=== PATIENT | male | born 1975 | race Caucasian/White ===

== ENCOUNTER → 2018-01-12 11:30 | Outpatient (CLI) | payer OTHER, MEDICAID, SELFPAY ==
[2018-01-12 12:52] LABS: Alanine Aminotransferase 47 IU/L (21-72); Albumin 4.5 g/dL (3.5-5.0); Albumin Globulin Ratio 1.7 (1.0-2.8); Alkaline Phosphatase 56 U/L (38-126); Aspartate Aminotransferase 24 IU/L (17-59); Bilirubin Total 0.8 mg/dL (0.2-1.3); Blood Urea Nitrogen 14 mg/dL (9-20); Calcium 9.3 mg/dL (8.4-10.2); Carbon Dioxide 27 mmol/L (22-32); Chloride 104 mmol/L (98-107); Cholesterol 173 mg/dL (140-199); Estimated Glomerular Filt Rate > 60.0 mL/min (>60); Globulin 2.6 g/dL (1.7-4.1); Glucose 102 mg/dL (70-100); HDL Cholesterol 40 mg/dL (40-60); HEMOLYSIS < 15 (0-50); LDL Cholesterol Calculated 110 mg/dL (<100); Potassium 4.5 mmol/L (3.4-5.1); Sodium 145 mmol/L (137-145); Total Protein 7.1 g/dL (6.3-8.2); Triglycerides 116 mg/dL (35-150); Uric Acid 6.8 mg/dL (3.5-8.5)
== END ==
PROVIDERS: PCP Physician Assistant; Visit Provider Physician Assistant
DX: E66.9 Obesity, unspecified (principal); M25.40 Effusion, unspecified joint; Z82.49 Family history of ischemic heart disease and other diseases of the circulatory system
CPT/HCPCS: 36415; 80053; 80061; 84550

== ENCOUNTER → 2019-04-22 13:29 | Outpatient (CLI) | payer OTHER, MEDICAID, SELFPAY | PROVIDERS: PCP Physician Assistant; Visit Provider Physician Assistant | DX: K14.6 Glossodynia (principal) | CPT/HCPCS: 87070; 87205 ==

== ENCOUNTER → 2020-02-20 15:57 | Outpatient (CLI) | payer OTHER, MEDICAID, SELFPAY ==
[2020-02-20 17:07] LABS: Add Manual Diff / Slide Review NO; Basophils Absolute Auto 100 /uL (0-100); Basophils Percent Auto 0.5 % (0-2); Eosinophils Absolute Auto 200 /uL (0-450); Eosinophils Percent Auto 2.3 % (2-4); Hematocrit 45.8 % (41-53); Hemoglobin 15.6 g/dL (13.5-17.5); Lymphocytes Absolute Auto 2100 /uL (1100-4500); Lymphocytes Percent Auto 22.7 % (25-40); Mean Corpuscular Hemoglobin 31.1 PG (26-34); Mean Corpuscular Volume 91.4 fL (80-100); Monocytes Absolute Auto 600 /uL (0-900); Monocytes Percent Auto 6.4 % (3-14); Neutrophils Absolute Auto 6400 /uL (1500-7000); Neutrophils Percent Auto 68.1 % (50-75); Platelet Count 259 X10^3/uL (150-400); Red Blood Cell Count 5.01 X10^6/uL (4.5-5.9); White Blood Cell Count 9.4 X10^3/uL (4.5-11.0)
[2020-02-20 17:19] LABS: Cholesterol 204 mg/dL (140-199); HDL Cholesterol 43 mg/dL (40-60); LDL Cholesterol Calculated 132 mg/dL (<100); Triglycerides 146 mg/dL (35-150)
[2020-02-20 17:21] LABS: Alanine Aminotransferase 28 IU/L (<50); Albumin 4.5 g/dL (3.5-5.0); Albumin Globulin Ratio 1.3 (1.0-2.8); Alkaline Phosphatase 71 U/L (38-126); Aspartate Aminotransferase 23 IU/L (17-59); BUN Creatinine Ratio 11.1 (6-22); Bilirubin Total 0.8 mg/dL (0.2-1.3); Blood Urea Nitrogen 12 mg/dL (9-20); Calcium 9.2 mg/dL (8.4-10.2); Carbon Dioxide 26 mmol/L (22-32); Chloride 106 mmol/L (98-107); Estimated Glomerular Filt Rate > 60.0 mL/min (>60); Globulin 3.6 g/dL (1.7-4.1); Glucose 95 mg/dL (70-100); HEMOLYSIS < 15 (0-50); Lipase 68 U/L (23-300); Potassium 3.9 mmol/L (3.4-5.1); Sodium 141 mmol/L (137-145); Total Protein 8.1 g/dL (6.3-8.2)
== END ==
PROVIDERS: PCP Family Medicine; Referring Provider Registered Nurse; Visit Provider Registered Nurse
DX: R10.9 Unspecified abdominal pain (principal); Z68.35 Body mass index [BMI] 35.0-35.9, adult
CPT/HCPCS: 36415; 80053; 80061; 83690; 85025

== ENCOUNTER → 2020-02-22 07:45 | Outpatient (CLI) | payer OTHER, MEDICAID, SELFPAY ==
--- NOTE | 2020-02-22 07:46 | DI.US.S_ITS ---
PROCEDURE: US ABDOMEN COMPLETE INDICATIONS: abdominal pain TECHNIQUE: Real-time scanning was performed of the abdominal and retroperitoneal organs, with image documentation. COMPARISON: [facility], US, ABDOMEN COMPLETE, 06/01/2010, 14:24. [facility], [place], ABDOMEN COMPLETE, 11/04/2013, 9:34. FINDINGS: Liver: The liver demonstrates normal size. The liver demonstrates generalized moderately increased echogenicity. This decreases ultrasound sensitivity for detection of hepatic masses. Apparent fatty sparing can be seen adjacent to, 16 x 6 x 5 mm Gallbladder: A nonmobile stones with mild shadowing can be seen near the gallbladder neck, that measures up to 14. The gallbladder wall is not thickened, measuring 3 mm or less. No specific pericholecystic fluid is seen. The sonographic Armas sign is negative. Biliary ducts: Intrahepatic bile ducts are non-dilated. Extrahepatic bile duct caliber measures 5 mm. Normal is 6-7 mm or less in diameter, or 10 mm or less post-cholecystectomy. Pancreas: Not well seen. Spleen: The spleen demonstrates normal size. The spleen is mildly heterogeneous, with a 1.1 cm vascular nodule within it. Kidneys: Kidneys are normal in size and echotexture. Right kidney measures 11.4 cm long; left kidney measures 12.1 cm long. No hydronephrosis. No solid masses. Apparent kidney stones are seen, with the largest within the left mid kidney measuring up to 1.3 cm. Aorta: Visualized aorta is normal in caliber at less than 3 cm. Iliacs: Proximal common iliac arteries are normal in caliber at less than 2.5 cm. IVC: Intrahepatic inferior vena cava is patent. Miscellaneous: No free abdominal fluid. IMPRESSION: Within the spleen, there is a vascular nodule that measures up to 1.1 cm. This is regarded to be unlikely to be related to the patient's presenting history of left upper quadrant pain. If clinically appropriate, please consider a follow-up abdomen and pelvis CT with at least IV contrast for further evaluation. An apparent group of nonmobile gallstones can be seen, yet without additional sonographic signs of cholecystitis. Negative for biliary dilatation. Please correlate with physical examination findings, patient presentation, and laboratory values. Fatty liver infiltration. Pancreas not well seen. Dictated by: Aubrey Baca M.D. on 02/22/2020 at 8:18 Approved by: Indio LopezD. on 02/22/2020 at 8:23
== END ==
PROVIDERS: PCP Family Medicine; Referring Provider Family Medicine; Visit Provider Registered Nurse
DX: R10.12 Left upper quadrant pain (principal); K76.0 Fatty (change of) liver, not elsewhere classified; K80.20 Calculus of gallbladder without cholecystitis without obstruction; D73.9 Disease of spleen, unspecified
CPT/HCPCS: 76700

== ENCOUNTER → 2020-03-06 10:38 | Outpatient (CLI) | payer OTHER, MEDICAID, SELFPAY ==
--- NOTE | 2020-03-06 10:45 | DI.CT.S_ITS ---
PROCEDURE: CT ABDOMEN PELVIS WO/W CON INDICATIONS: Spleen nodule TECHNIQUE: After the administration of oral contrast, 5 mm thick sections acquired from the diaphragms to the iliac crests. After the administration of intravenous contrast, 5 mm thick sections acquired from the diaphragms to the symphysis. 5 mm thick coronal and sagittal reformats were acquired. For radiation dose reduction, the following was used: automated exposure control, adjustment of mA and/or kV according to patient size. COMPARISON: [facility], [place], ABDOMEN COMPLETE, 11/04/2013, 9:34. [facility], [place], US ABDOMEN COMPLETE, 02/22/2020, 8:06. FINDINGS: Image quality: Excellent. ABDOMEN: Lung bases: There is a nonenhancing, low-density, subpleural ovoid mass in the left paravertebral soft tissues just behind the aorta. It measures 2.5 x 4.8 cm. Lung bases are clear. Heart size is normal. Solid organs: Liver is normal in size and enhancement. Mild steatosis. Gallbladder contains a small peripherally calcified stone near the neck measuring about 8 mm. No suspicious wall thickening or pericholecystic inflammation. Biliary system is non-dilated. Pancreas enhances normally. Spleen is normal in size. A 1.1 cm minimally vascular nodule is present centrally in the spleen. Additionally, a 1.2 cm vascular nodule is present along the anterior margin. No adrenal nodules. Both kidneys are normal in size. No hydronephrosis or radiodense nephrolithiasis. Bowel and peritoneum: Stomach, small and large bowel loops are normal in caliber and wall thickness. Normal appendix. No free fluid or air. Nodes and vessels: No retroperitoneal or mesenteric adenopathy by size criteria. Aorta and inferior vena are normal in caliber. Miscellaneous: No ventral hernias. PELVIS: Genitourinary: Bladder wall thickness is normal. Miscellaneous: No inguinal hernias or adenopathy. Bones: No suspicious bony lesions. No vertebral body compression fractures. IMPRESSION: 1. There are two mildly vascular nodules within the splenic parenchyma. These are nonspecific but statistically most likely hemangiomas or lymphangioma is. Less typical for vascular shunts or AVM. 2. Cholelithiasis. 3. 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 4. No evidence of renal calculi. 5. Mild hepatic steatosis. Dictated by: Mackenzie Jacobs M.D. on 03/06/2020 at 14:41 Approved by: Mackenzie Jacobs M.D. on 03/06/2020 at 14:56
== END ==
PROVIDERS: PCP Family Medicine; Referring Provider Registered Nurse; Visit Provider Registered Nurse
DX: D73.89 Other diseases of spleen (principal); K80.20 Calculus of gallbladder without cholecystitis without obstruction; N28.89 Other specified disorders of kidney and ureter; M48.9 Spondylopathy, unspecified
CPT/HCPCS: 74178; Q9967

== ENCOUNTER → 2020-06-01 11:03 | Outpatient (CLI) | payer OTHER, MEDICAID, SELFPAY ==
[2020-06-01 11:42] LABS: COVID19 -Nasal RAPID Negative (Negative)
== END ==
PROVIDERS: PCP Family Medicine; Visit Provider Surgery
DX: Z20.822 Contact with and (suspected) exposure to COVID-19 (principal)
CPT/HCPCS: 87635; C9803

== ENCOUNTER 2020-06-04 13:18 | Day surgery (SDC) | payer OTHER, MEDICAID, SELFPAY ==
[2020-06-04] VITALS (16 sets, daily range): BP systolic 119–151; BP diastolic 72–93; PULSE 72–110; RESP 10–20; TEMP 36.3–37.9; O2SAT 90–98; BMI 32.8
--- NOTE | 2020-06-04 | PATH_ITS ---
[facility] Accession Number: [id number] . 01 Material submitted: . PART A: gallbladder - GALLBLADDER AND CONTENTS PART B: duodenum - DUODENUM PART C: stomach - STOMACH BIOPSY PART D: esophagus - ESOPHAGEAL BIOPSY . 02 Diagnosis: A. Gallbladder and Contents, Cholecystectomy: Chronic cholecystitis, cholesterolosis, and cholelithiasis. . B. Duodenum, Biopsy: Duodenal mucosa with no diagnostic abnormality. Negative for active inflammation, features of sprue, dysplasia, or malignancy. . C. Stomach Biopsy: Portions of gastric antral and body-type mucosa with mild chronic inflammation. Negative for Helicobacter organisms by immunohistochemistry studies. Negative for intestinal metaplasia. Negative for dysplasia and malignancy. . D. Esophageal Biopsy: Squamocolumnar junctional mucosa with no diagnostic abnormality. Negative for intestinal metaplasia by alcian blue stain. Negative for dysplasia and malignancy. . [facility] 06/08/2020 1249 Local . 02 Electronically signed: . Jackie Degroot MD, Pathologist NPI- [id number] . 01 Gross description: . A. The specimen is received in formalin, labeled gallbladder and consists an 8.5 x 3.0 x 3.0 cm gallbladder with a 0.2 cm in diameter cystic duct. The serosa is landeros-green and smooth. Opening reveal green viscous bile with 1.8 x 1.5 x 1.0 cm green cholelith. The mucosa is lake-green and velvety, and the wall thickness measures 0.1 cm. Job Honer sections are submitted to include the en face cystic duct margin (blue) in cassette A1. B. The specimen is received in formalin, labeled duodenum and consists of a 0.3 x 0.2 x 0.2 cm lake-pink fragment of soft tissue which is entirely submitted in cassette B1. C. The specimen is received in formalin, labeled stomach and consists of three lake-pink fragments of soft tissue measuring 0.6 x 0.4 x 0.2 cm in aggregate. The specimen is entirely submitted in cassette C1. D. The specimen is received in formalin, labeled esophageal and consists of three lake fragments of soft tissue measuring 0.5 x 0.4 x 0.2 cm in aggregate. The specimen is entirely submitted in cassette D1. (EA:[id number]) /MRV 06/06/2020 1130 Local . 02 Microscopic: . C. An immunohistochemical stain was performed to evaluate for Helicobacter organisms and is negative. The control stain showed appropriate reactivity. . * This test was developed and its performance characteristics determined by [employer]. It has not been cleared or approved by the U.S. Food and Drug Administration. The FDA has determined that such clearance or approval is not necessary. This test is used for clinical purposes. It should not be regarded as investigational or for research. . 02 Pathologist provided ICD-10: K20.90, K80.20 . 02 CPT . 989928, 138055, 909341, 627978, S80436, 661984 Performed at: 01 [facility] [address] [place] [address], [place], [place] [id number] MD Tylor Bobby MD Phone: [phone] Performed at: 02 [facility] [place] [address] [address] [place], [place] [id number] MD Devika Bill MD Phone: [phone]
[2020-06-04] MEDS: LACTATED RINGERS 1,000 ML 100 ML IV ×2 (13:50→16:18)
[2020-06-04] MEDS: [UNRECOGNIZED DRUG - OTHER] 5 EACH IV (13:50)
[2020-06-04] MEDS: PIPERACILLIN-TAZO 3.375 GM/50 ML FROZ.PIGGY IV (14:22)
--- NOTE | 2020-06-04 14:27 | PM.PREOP ---
Pre-operative Note COVID-19 COVID-19 status: Negative Result date/Date tested (Pos, Neg/Pending): 06/01/20 Interval Note History & Physical reviewed/Exam performed by Physician: Yes Changes to H&P: No
[2020-06-04] MEDS: BUPIVACAINE 0.25% W/ EPI (PF) 10 ML VIAL 30 ML INJ (14:57)
--- NOTE | 2020-06-04 16:28 | PM.OP.1 ---
Operative Date/Time/Diagnoses Date of procedure: 06/04/20 Time of procedure: 16:28 Pre-op diagnosis: Symptomatic cholelithiasis Post-op diagnosis: other (Acute on chronic cholecystitis, symptomatic cholelithiasis, deeply intrahepatic gallbladder) Procedure & Clinicians Procedure: Laparoscopic cholecystectomy Indocyanine green cholangiography Modified 22 for deeply intrahepatic gallbladder, resulting in increased operative time and complexity Same procedure as scheduled: Yes Indications: Symptomatic cholithiasis Surgeon: Paty Olsen Click Yes if Unassisted: Yes Anesthesia Type: General Operative Notes Findings: Thickened gall bladder, deeply intrahepatic gall bladder Specimen(s): other (gall bladder and contents) Applied: drain(s) Estimated Blood Loss (mL): 100 Blood products transfused: none Procedure in detail: The patient was brought into the operating room and placed supine on the OR table. Sequential compression devices were placed on both legs and turned on. Appropriate perioperative antibiotics were given prior to the start of surgery. General anesthesia was induced the patient was intubated. The abdomen was prepped and draped in sterile fashion. Surgical time-out was conducted. Local anesthetic was injected under the skin just superior to the umbilicus and a 5 mm vertical incision was made at this site. The umbilical stalk was grasped with a Anusha and elevated. A Veress needle was passed through the fascia into proper position. The position was tested with a saline drop test which was appropriate for intra-abdominal Veress needle placement. The abdomen was then insufflated in the usual fashion. Once insufflated to 15 mm Hg the Veress needle was removed and a 5 mm optical trocar was placed under direct vision using a 5 mm 30 degree scope. Once the camera was inside the abdomen I took a look around. There was no injury from port placement. Two additional ports were placed in a similar fashion in the right upper quadrant and a 10 mm port was placed in the epigastrium. Through the 2 lateral ports the gallbladder was grasped and elevated and the infundibulum was retracted laterally to the patient's right. The gall bladder was deeply intra-hepatic. Through positioning, access to the gall bladder hilum was not achievable due to the deeply intrahepatic position of the gall bladder. The hilum could not be safely approached at this point. The decision was made to begin taking the gall bladder from the top down. A Raytec was placed into the abdomen and it was used to protect the liver while retracting upwards on the liver. L-hook cautery was used to open the serosa of the gall bladder and to begin dividing the gall bladder fundus from the liver beginning at its most superior extent, and carefully dissecting down along the posterior surface of the gall bladder in the plane between the gall bladder and the liver. Several penetrating vessels were encountered and were controlled with clips and cautery. This part of the procedure added over one hour to the operation, due to patient anatomy. Modifier 22 should be included in the coding for this case due to increased operative time, and increased level of skill and difficulty required to complete this part of the operation safely. Once the gall bladder was freed from the liver surface, I again lifted the gall bladder and attempted to retract the infundibulum laterally again and to see the hilum. At this point, I was able to get the gall bladder away from the liver enough to address the cystic duct and artery. There was thick inflammatory tissue on the surface of the infundibulum and cystic structures. This was carefully taken down with hook cautery. Indocyanine green cholangiography was used to identify the cystic duct and common bile duct. The cystic duct was obstructed at its junction with the gall bladder with a gall stone lodged in the neck. The cystic duct and CBD were both seen with ICG, and the common bile duct was seen well away from the area of dissection. [place] dissector and right angle were used to dissect out the cystic duct and artery. Once the cystic duct and artery were completely dissected out I was able to see liver behind and between both structures without any other structures in the way, giving us the critical view of safety. I again checked the view using ICG and was able to identify the anterior structure as the cytic duct. I milked the obstructing stone up as high as I could to give more length on the cystic duct. At this point I triply clipped both structures on the patient's side and put a single clip on the gallbladder side of both the cystic duct and artery. Both structures were then divided with laparoscopic Betito. The few remaining adhesions were taken down with hook cautery. Following this the gallbladder was free from the liver. It was placed inside an Endo-Catch bag and removed through the epigastric port site. I did not have to enlarge the epigastric port site to remove the gall bladder. I irrigated and inspected the gall bladder hilum for hemostasis. An additional clip was applied to an oozing vessel in the gall bladder hilum, and surgicel was used to achieve good hemostasis I suctioned clean any remaining blood or fluid on the lateral side of the liver and in the subhepatic space. The Raytec was removed. There was no active bleeding or leaking of bile from the gallbladder fossa or from the clipped stumps of the cystic duct and artery. A 19 round staci drain was placed through the lateral port site and positioned in an infrahepatic position. At this point an O vicryl on a [email or web address] suture passer was used to close the epigastric port site in the fascia with multiple sutures. Insufflation was then removed from the abdomen. Additional local anesthetic was given at the epigastric site. A 3-0 Vicryl was used to close the subcutaneous layers, and 4-0 Monocryl was used to close the skin. Additional local anesthetic was infiltrated into each port site. Each port site was closed with 4-0 Monocryl, and sealed with Dermabond. This concluded the procedure. At this point the needle, sponge, and instrument counts were correct. The gallbladder was passed off the table for pathology. Patient was awakened from anesthesia and extubated. He was transferred to the postanesthesia care unit in stable condition. Complications: none Post-operative Condition: stable Disposition: PACU
--- NOTE | 2020-06-04 16:28 | PM.OP.ENDO ---
Operative Date/Time/Diagnoses Date of procedure: 06/04/20 Time of procedure: 16:28 Pre-op diagnosis: Heartburn uncontrolled with omeprazole Procedure & Clinicians Study performed: Esophagus gastroduodenoscopy Biopsies of duodenum, stomach, distal soft Same procedure as scheduled: Yes Indications: Heartburn controlled with omeprazole Surgeon: Paty Olsen Procedure Notes SCOAP/Timeout: Performed Procedure in detail: This procedure was done after the patient's cholecystectomy, and he was still under anesthesia with an ET tube in place. A bite block was positioned in the patient's mouth to protect the lips, teeth, and tongue for the procedure. The time-out was already completed at the beginning of the cholecystectomy procedure which preceded this EGD. The lubricated gastroscope was passed through the bite block and across the tongue and into the esophagus without incident. A tubular view of the esophagus was maintained as the scope was advanced through the esophagus and into the stomach. The scope was advanced through the stomach and to the pylorus. The scope was gently popped through the pylorus and into the duodenal bulb. The scope was flexed and advanced into the second and third portions of the duodenum. The duodenum and duodenal bulb [appeared otherwise normal, with significant bile staining]. Biopsies were taken. The scope was withdrawn into the stomach. Moderate endoscopic gastritis was seen in the stomach, with no significant ulcers, exposed vessels, or active bleeding. The scope was retroflexed and the gastric cardia was examined. There was no significant evidence of a hiatal hernia. The scope was then straightened, and withdrawn into the esophagus. There was a broken Z-line, with several 1-2 cm tongues of salmon-colored mucosa coming up into the esophagus. Biopsies were taken. The distal esophagus [appeared otherwise normal]. The scope was then withdrawn through the esophagus with a tubular view. The scope was then withdrawn from the patient the procedure was concluded. The patient tolerated the procedure well. He was awakened from anesthesia, extubated, and was transferred to the PACU in stable condition. Findings: gastritis and other findings (Reflux esophagitis) Specimen(s): other (Biopsies of duodenum, stomach, distal esophagus) Complications: none Impression: Reflux esophagitis, gastritis Post-procedure Recommendations: Continue medication(s) (Continue omeprazole) and Other recommendation (Will discuss biopsy results the patient comes for postop visit) Follow up: as needed Disposition: PACU
[2020-06-04 17:34] LABS: Add Manual Diff / Slide Review NO; Basophils Absolute Auto 0 /uL (0-100); Basophils Percent Auto 0.2 % (0-2); Eosinophils Absolute Auto 0 /uL (0-450); Eosinophils Percent Auto 0.3 % (2-4); Hemoglobin 14.6 g/dL (13.5-17.5); Lymphocytes Absolute Auto 700 /uL (1100-4500); Mean Corpuscular Hemoglobin 30.9 PG (26-34); Mean Corpuscular Volume 90.8 fL (80-100); Monocytes Absolute Auto 100 /uL (0-900); Monocytes Percent Auto 0.7 % (3-14); Neutrophils Absolute Auto 12400 /uL (1500-7000); Neutrophils Percent Auto 93.8 % (50-75); Platelet Count 231 X10^3/uL (150-400); Red Blood Cell Count 4.73 X10^6/uL (4.5-5.9); Red Cell Distribution Width 13.8 % (11.6-14.8); White Blood Cell Count 13.3 X10^3/uL (4.5-11.0)
[2020-06-04] MEDS: OXYCODONE IR 5 MG TABLET PO (20:02)
[2020-06-04] MEDS: FLUTICASONE 110MCG HFA 120 PUFF INH (20:06)
--- NOTE | 2020-06-04 21:47 | PC.NURSE ---
Pt satisfactory post op course. SpO2 96% RA Three durobound sites across abdomen CDI Phil drain to right side abd w/small amount dark dainage. HL intact/patent. Call light w/in reach, bed alarm on for pt safety. Continue w/plan of care.
[2020-06-04] MEDS: ACETAMINOPHEN 325 MG TABLET 650 MG PO (23:56)
[2020-06-05 00:50] VITALS: TEMP 37.6
[2020-06-05 01:01] VITALS: TEMP 37.6
--- NOTE | 2020-06-05 02:59 | PC.NURSE ---
0003 patient is alert and oriented. Breath sounds CTA with RA sat of 93%; on continuous oximetry. HRR but tachy at 110 bpm. BP elevated at 147/88 but stable with previous reading. Denies nausea. BT hypoactive and denies flatus; abdomen is soft but tender. Had not yet been out of bed but then up to bathroom later with SBA. Declined to go for walk in [place]. Dressing to drain site is CDI; Phil drain is intact and compressed. Lap sites x 3 w/dermabond; no redness. Wearing bilateral calf SCD's. Stated pain only 2/10. Temp elevated at 100.2 and received scheduled Tylenol with temp decreasing to 99.7. Fall risk score is low.
[2020-06-05 05:00] VITALS: BP 136/78; PULSE 102; RESP 16; TEMP 36.8; O2SAT 92
[2020-06-05] MEDS: ACETAMINOPHEN 325 MG TABLET 650 MG PO (05:53)
[2020-06-05 06:53] LABS: Add Manual Diff / Slide Review NO; Basophils Absolute Auto 100 /uL (0-100); Basophils Percent Auto 0.4 % (0-2); Eosinophils Absolute Auto 0 /uL (0-450); Hematocrit 44.1 % (41-53); Lymphocytes Absolute Auto 1600 /uL (1100-4500); Lymphocytes Percent Auto 11.6 % (25-40); Mean Corpuscular HGB Conc 33.9 % (30-36); Mean Corpuscular Hemoglobin 30.7 PG (26-34); Mean Corpuscular Volume 90.6 fL (80-100); Monocytes Absolute Auto 700 /uL (0-900); Monocytes Percent Auto 5.2 % (3-14); Neutrophils Absolute Auto 11200 /uL (1500-7000); Neutrophils Percent Auto 82.8 % (50-75); Platelet Count 268 X10^3/uL (150-400); Red Blood Cell Count 4.87 X10^6/uL (4.5-5.9); Red Cell Distribution Width 13.5 % (11.6-14.8); White Blood Cell Count 13.5 X10^3/uL (4.5-11.0)
[2020-06-05 07:10] LABS: Alanine Aminotransferase 85 IU/L (<50); Albumin 4.3 g/dL (3.5-5.0); Albumin Globulin Ratio 1.4 (1.0-2.8); Alkaline Phosphatase 69 U/L (38-126); Aspartate Aminotransferase 51 IU/L (17-59); BUN Creatinine Ratio 16.9 (6-22); Bilirubin Total 0.6 mg/dL (0.2-1.3); Blood Urea Nitrogen 13 mg/dL (9-20); Carbon Dioxide 24 mmol/L (22-32); Chloride 105 mmol/L (98-107); Estimated Glomerular Filt Rate > 60.0 mL/min (>60); Glucose 150 mg/dL (70-100); HEMOLYSIS < 15 (0-50); Potassium 3.9 mmol/L (3.4-5.1); Sodium 138 mmol/L (137-145); Total Protein 7.3 g/dL (6.3-8.2)
[2020-06-05] MEDS: ALBUTEROL HFA MDI 60 PUFF/8 GM INHALER INH (07:43)
[2020-06-05] MEDS: FLUTICASONE 110MCG HFA 120 PUFF INH (07:44)
[2020-06-05 08:18] VITALS: PULSE 100; RESP 16; O2SAT 93
[2020-06-05 08:45] VITALS: BP 145/91; PULSE 100; RESP 17; TEMP 36.6; O2SAT 94
[2020-06-05] MEDS: FLUTICASONE 120 SPRAY/16 GM SPRAY.SUSP NASAL (09:02)
[2020-06-05] MEDS: SODIUM CHLORIDE 0.9% FLUSH 10 ML IV (09:03)
[2020-06-05] MEDS: PANTOPRAZOLE 40 MG VIAL IV (09:03)
[2020-06-05] MEDS: HYDROMORPHONE 0.5 MG INJ IV (10:22)
--- NOTE | 2020-06-05 10:51 | CM.DANOTE ---
Patient with VSS, HR 90's to low 100's this a.m. afebrile on RA. Tolerating breakfast, up to the bathroom to void independently. MD Ramirez at bedside removing Phil drain. Administered 0.5 mg hydromorphone for drain removal. Lap sites C/D/I without drainage. BS +x4, he reports passing gas. Medicated with scheduled medications. Patient cleared for discharge and spouse at bedside. Discharge medications, instructions and follow up appointments reviewed with patient. Spouse and patient verbalize understanding. Discharged with all belongings.
--- NOTE | 2020-06-05 11:53 | PC.NURSE ---
Pt encouraged to cough/deep breath;IS 1500; BTs active, tympanic, passing gas; incisions well-approximated and open to air
--- NOTE | 2020-06-05 16:14 | CM.DANOTE ---
DCP ASSESSMENT: Patient is a 44 year-old male admitted to the hospital for a cholecystectomy. PCP is Carlos Monge. Primary payer is [facility] and Medicaid. OPERATIONS LIEUTENANT Student met with patient at bedside. He was alert and oriented. Educated on role of social work in D/C planning. Patient reported he is completely independent with ADL?s including driving. He is anxious to D/C home form hospital, ?I wanted to go yesterday.? Patient reported his daughter Maisha will provide transportation. If not his Hyun Rothman . Spoke with Dr. Olsen at 1015 am this morning she stated she plans to D/C patient this date, orders pending. PLAN: Anticipate D/C home. CM Team to continue to follow. ELLIS Rhodes MSW Student Discharge Planning/Care Management CM Discharge Assessment Start: 06/05/20 10:42 Freq: Status: Discharge Protocol: Document 06/05/20 10:42 AL (Rec: 06/05/20 10:45 AL [id number]) Discharge Planning Assessment Assigned Vending Attendant ELLIS Magana Student Contact Information Hyun Rothman, Advance Directives? No History Provided By Patient,Medical Record Has Patient been admitted in last 30 No days? Prior Living Arrangements House Household Members spouse,children Type of transporation used prior to Drives own vehicle admit Independent with ADL's Yes Is patient alert and oriented? Yes Caregiver for Another No Barriers to Discharge No Discharge Plan Home Transportation Arrangement Daughter Candence to provide transportation Whiteboard Updated in Patient Room with Yes name and ext. # of Vending Attendant Review Status In Process Pre-Anesthesia Assessment Start: 05/23/20 07:40 Freq: Status: Complete Protocol: Document 05/23/20 07:40 GERRI (Rec: 05/23/20 07:48 GERRI [id number]) Pre-Anesthesia Assessment Patient Information Reviewed Via Chart Review Seen Specialist in Last 12 Months Yes Specialist Seen General surgeon Height 180.34 cm Anesthesia Review Requested No Concrete Laborer No alcohol intake former Smoking Status Current every day smoker
== END 2020-06-05 12:14 | disposition home or self-care (01) ==
LOC: OR 14:21 → AC 17:06
PROVIDERS: PCP Family Medicine; Referring Provider Surgery; Visit Provider Surgery
PROC: 0FT44ZZ Resection of Gallbladder, Percutaneous Endoscopic Approach (ICD-10-PCS; CPT 47562; principal; 2020-06-04 14:15)
PROC: 0DJ08ZZ Inspection of Upper Intestinal Tract, Via Natural or Artificial Opening Endoscopic (ICD-10-PCS; CPT 43235; 2020-06-04 14:15)
DX: K80.12 Calculus of gallbladder with acute and chronic cholecystitis without obstruction (principal); R12 Heartburn; J45.909 Unspecified asthma, uncomplicated; K21.9 Gastro-esophageal reflux disease without esophagitis; K29.50 Unspecified chronic gastritis without bleeding
CPT/HCPCS: 47563; 43239; 36415; 80053; 82962; 85025; 94640; 94762; 99406; A9270; C9113; J1100; J1170; J2250; J2405; J2543; J2704; J3010

== ENCOUNTER → 2021-03-26 12:24 | Outpatient (CLI) | payer OTHER, MEDICAID, SELFPAY ==
[2020-06-04 17:08] VITALS: BMI 32.8
[2021-03-26 14:43] LABS: COVID19 -Nasal RAPID Negative (Negative)
== END ==
PROVIDERS: PCP Family Medicine; Referring Provider Student in an Organized Health Care Education/Training Program; Visit Provider Student in an Organized Health Care Education/Training Program
DX: Z20.822 Contact with and (suspected) exposure to COVID-19 (principal); R05.9 Cough, unspecified
CPT/HCPCS: 87635

== ENCOUNTER → 2022-08-05 15:43 | Outpatient (CLI) | payer OTHER, MEDICAID, SELFPAY ==
[2020-06-04 17:08] VITALS: BMI 32.8
[2022-08-05 16:31] LABS: Add Manual Diff / Slide Review NO; Basophils Absolute Auto 0 /uL (0-100); Basophils Percent Auto 0.6 % (0-2); Eosinophils Absolute Auto 200 /uL (0-450); Eosinophils Percent Auto 2.3 % (2-4); Hemoglobin 15.2 g/dL (13.5-17.5); Lymphocytes Absolute Auto 2000 /uL (1100-4500); Lymphocytes Percent Auto 25.7 % (25-40); Mean Corpuscular HGB Conc 34.5 % (30-36); Mean Corpuscular Hemoglobin 31.3 PG (26-34); Mean Corpuscular Volume 90.5 fL (80-100); Monocytes Absolute Auto 400 /uL (0-900); Monocytes Percent Auto 5.7 % (3-14); Neutrophils Absolute Auto 5100 /uL (1500-7000); Neutrophils Percent Auto 65.7 % (50-75); Platelet Count 274 X10^3/uL (150-400); Red Blood Cell Count 4.86 X10^6/uL (4.5-5.9); Red Cell Distribution Width 13.2 % (11.6-14.8); White Blood Cell Count 7.8 X10^3/uL (4.5-11.0)
[2022-08-05 16:47] LABS: Alanine Aminotransferase 29 IU/L (<50); Albumin 4.5 g/dL (3.5-5.0); Albumin Globulin Ratio 1.5 (1.0-2.8); Alkaline Phosphatase 62 U/L (38-126); Aspartate Aminotransferase 25 IU/L (17-59); BUN Creatinine Ratio 14.9 (6-22); Blood Urea Nitrogen 15 mg/dL (9-20); Carbon Dioxide 26 mmol/L (22-32); Chloride 102 mmol/L (98-107); Cholesterol 161 mg/dL (140-199); Estimated Glomerular Filt Rate > 60 mL/min (>60); Glucose 86 mg/dL (70-100); HDL Cholesterol 37 mg/dL (40-60); HEMOLYSIS 15 (0-50); LDL Cholesterol Calculated 102 mg/dL (<100); Potassium 4.4 mmol/L (3.4-5.1); Sodium 137 mmol/L (137-145); Total Protein 7.5 g/dL (6.3-8.2); Triglycerides 111 mg/dL (35-150)
== END ==
PROVIDERS: PCP Family Medicine; Referring Provider Family Medicine; Visit Provider Family Medicine
DX: E78.00 Pure hypercholesterolemia, unspecified (principal); J45.909 Unspecified asthma, uncomplicated; K21.00 Gastro-esophageal reflux disease with esophagitis, without bleeding; K57.92 Diverticulitis of intestine, part unspecified, without perforation or abscess without bleeding; Z90.49 Acquired absence of other specified parts of digestive tract; Z13.220 Encounter for screening for lipoid disorders
CPT/HCPCS: 36415; 80053; 80061; 85025

== ENCOUNTER → 2022-08-24 10:49 | Outpatient (CLI) | payer OTHER, MEDICAID, SELFPAY ==
[2020-06-04 17:08] VITALS: BMI 32.8
--- NOTE | 2022-08-24 10:52 | DI.CT.S_ITS ---
PROCEDURE: CT HEAD/BRAIN WO CON INDICATIONS: headache with ejaculation TECHNIQUE: Noncontrast 4.5 mm thick angled axial sections acquired from the foramen magnum to the vertex, with coronal and sagittal reformats. For radiation dose reduction, the following was used: automated exposure control, adjustment of mA and/or kV according to patient size. COMPARISON: None. FINDINGS: Image quality: Excellent. CSF spaces: Basal cisterns are patent. No extra-axial fluid collections. Ventricles are normal in size and shape. Brain: No midline shift. No intracranial masses or hemorrhage. Dyson-white matter interface is normal. Skull and face: Calvarium and visualized facial bones are intact, without suspicious lesions. Sinuses: Visualized sinuses and mastoids are clear. IMPRESSION: Unremarkable CT of the brain Approved by: Guy Smith M.D. on 08/24/2022 at 10:31
== END ==
PROVIDERS: PCP Family Medicine; Referring Provider Family Medicine; Visit Provider Family Medicine
DX: G44.82 Headache associated with sexual activity (principal)
CPT/HCPCS: 70450